=== PATIENT | male | born 1955 | race American Indian/Alaskan Native ===

== ENCOUNTER 2019-08-03 10:13 | Inpatient (IN) | payer OTHER ==
[2019-08-03] MEDS ORDERED: ASPIRIN 81 MG TAB CHEW PO ONE (10:29)
[2019-08-03] MEDS ORDERED: NITROGLYCERIN 2% OINT 1 GM TP ONE (10:29)
[2019-08-03] MEDS ORDERED: MORPHINE 4 MG/1 ML INJ IV ONE (10:30)
[2019-08-03] MEDS ORDERED: MORPHINE 4 MG/1 ML INJ ONE (10:35)
--- NOTE | 2019-08-03 10:38 | Emergency Department Report ---
ED Chest Pain HPI - General Chief Complaint: Chest Pain Stated Complaint: CHEST PAIN Time Seen by Provider: 08/03/19 10:26 Source: patient Mode of arrival: Wheelchair Limitations: No Limitations - History of Present Illness Initial Comments: 64-year-old Jayne female presents to the emergency department from home, through triage, with a complaint of some midsternal to right sided chest pain that woke him up from sleep this morning. It is associated with some mild shortness of breath but he denies any nausea, vomiting, fever or diaphoresis. He has not taken anything for her symptoms prior to arrival today. He is a tobacco smoker but denies any illicit drug use. He has a past mental history of hypertension. He has a primary care physician but does not have a contract law specialist. No recent travel or sick contacts at home. There are no known aggravating or alleviating factors. - Related Data Allergies Allergy/AdvReac Type Severity Reaction Status Date / Time No Known Allergies Allergy Unverified 08/03/19 10:17 Heart Score - HEART Score History: Highly suspicious EKG: Non-specific Age: 45-65 Risk factors: > 3 risk factors or hx of atherosclerotic disease Troponin: < normal limit HEART Score: 6 - Critical Actions Critical Actions: 4-6 pts:12-16.6% risk of adverse cardiac event. Should be admitted ED Review of Systems ROS: Stated complaint: CHEST PAIN Other details as noted in HPI Comment: All other systems reviewed and negative Constitutional: denies: chills, fever Eyes: denies: eye pain, vision change ENT: denies: ear pain, throat pain Respiratory: shortness of breath. denies: cough Cardiovascular: chest pain. denies: palpitations Gastrointestinal: denies: abdominal pain, vomiting Genitourinary: denies: dysuria, discharge Musculoskeletal: denies: back pain, arthralgia Skin: denies: rash, lesions Neurological: denies: headache, weakness ED Past Medical Hx - Past Medical History Previous Medical History?: Yes Hx Hypertension: Yes - Surgical History Past Surgical History?: No ED Physical Exam - General Limitations: No Limitations - Other Other exam information: GENERAL: The patient is well-developed well-nourished. HENT: Normocephalic. Atraumatic. Patient has moist mucous membranes. EYES: Extraocular motions are intact. NECK: Supple. Trachea is midline. CHEST/LUNGS: Clear to auscultation. There is no respiratory distress noted. Chest pain is not reproducible to palpation of the chest wall. HEART/CARDIOVASCULAR: Regular. There is no tachycardia. There is no murmur. ABDOMEN: Abdomen is soft, nontender. Patient has normal bowel sounds. There is no abdominal distention. SKIN: Skin is warm and dry. NEURO: The patient is awake, alert, and oriented. The patient is cooperative. The patient has no focal neurologic deficits. Normal speech. MUSCULOSKELETAL: There is no tenderness or deformity. There is no evidence of acute injury. ED Course Vital Signs 08/03/19 08/03/19 08/03/19 10:16 10:26 10:27 Temperature 97.9 F 97.9 F Pulse Rate 79 81 79 Respiratory 20 15 20 Rate Blood Pressure 180/106 Blood Pressure 176/108 [Right] O2 Sat by Pulse 99 99 Oximetry 08/03/19 08/03/19 08/03/19 10:30 10:45 11:00 Temperature Pulse Rate 80 82 81 Respiratory 21 12 11 L Rate Blood Pressure 174/107 171/102 Blood Pressure [Right] O2 Sat by Pulse 100 100 100 Oximetry 08/03/19 08/03/19 08/03/19 11:15 11:30 11:45 Temperature Pulse Rate 79 74 70 Respiratory 9 L 15 16 Rate Blood Pressure 156/102 153/96 153/96 Blood Pressure [Right] O2 Sat by Pulse 100 99 99 Oximetry 08/03/19 08/03/19 12:00 12:05 Temperature Pulse Rate 61 74 Respiratory 14 Rate Blood Pressure 160/97 153/96 Blood Pressure [Right] O2 Sat by Pulse 98 Oximetry - Consultations Consultation #1: A code STEMI was called secondary to the triage EKG. The EKG was shown to the barrel lathe operator outside, Dr. Beckham, who did not feel that the EKG mor phology was consistent with a STEMI but recommends the patient be treated medically, stabilized, and admitted for ACS. Code STEMI cancelled. The patient will be given 1 inch nitroglycerin paste. 08/03/19 10:36 08/03/19 11:15 A repeat EKG was sent to the barrel lathe operator outside and he was given a up date on the patient's ED course, vital signs and lab results thus far. The patient will be taken to the Garbage Collector Driver for ACS. BLAYNE score - Blayne Score Age > 65: (0) No Aspirin use within the Past 7 Days: (0) No 3 or more CAD Risk Factors: (1) Yes 2 or more Angina events in past 24 hrs: (1) Yes Known CAD with more than 50% Stenosis: (1) Yes Elevated Cardiac Markers: (0) No ST Deviation Greater than 0.5mm: (1) Yes BLAYNE Score: 4 ED Medical Decision Making - Lab Data Result diagrams: 08/03/19 10:34 08/03/19 10:34 - EKG Data -: EKG Interpreted by Me EKG shows normal: sinus rhythm, axis, intervals, QRS complexes, ST-T waves (ST elevation to the inferior leads without any significant reciprocal depression) Rate: normal - EKG Data When compared to previous EKG there are: previous EKG unavailable Interpretation: other (there is ST elevation to the inferior leads without reciprocal ST depression. Signs of ischemia or heart strain without ST elevation VA) - Radiology Data Radiology results: image reviewed interpreted by me: Chest x-ray does not show any acute process. There are no pleural effusions, obvious pneumonia and there is no pneumothorax. - Medical Decision Making This patient woke up this morning with some midsternal to right sided chest pain. EKG showed some concerns for ischemia but did not appear to meet ST elevation VA criteria after consultation with the contract law specialist. He was given aspirin, Nitropaste, morphine, a beta debbie with some improvement but not resolution of his chest pain. All this appeared consistent with acute coronary syndrome. The patient was placed on heparin and was taken to the Garbage Collector Driver where he was found to have an obstructive lesion of the second PDA that was given balloon angioplasty and the patient was then sent to the ICU. Patient accepted for admission by the hospitalist, Dr. White. - Differential Diagnosis VA, unstable angina, PE, pneumonia Critical Care Time: Yes Critical care time in (mins) excluding proc time.: 35 Critical care attestation.: If time is entered above; I have spent that time in minutes in the direct care of this critically ill patient, excluding procedure time. Critical care time was spent on this patient and doing his initial evaluation, multiple re-evaluations, ordering and interpretation of labs and imaging, m nora discussions with the barrel lathe operator outside and the patient himself. Critical Care Time: 35 minutes ED Disposition Clinical Impression: Acute chest pain, Acute coronary syndrome Disposition: DC-09 OP ADMIT IP TO THIS HOSP Is pt being admited?: Yes Condition: Serious Time of Disposition: 11:42
[2019-08-03 10:45] LABS: Basophils # (Auto) 0.1 K/mm3 (0.0-0.1); Eosinophils # (Auto) 0.3 K/mm3 (0.0-0.4); Eosinophils % (Auto) 2.6 % (0.0-4.3); Hemoglobin 15.8 gm/dl (11.8-15.2); Lymphocytes # (Auto) 4.2 K/mm3 (1.2-5.4); Lymphocytes % (Auto) 41.8 % (13.4-35.0); Mean Corpuscular HGB Conc 34 % (32-34); Mean Corpuscular Volume 101 fl (84-94); Monocytes # (Auto) 0.7 K/mm3 (0.0-0.8); Monocytes % (Auto) 7.2 % (0.0-7.3); Platelet Count 200 K/mm3 (140-440); Red Blood Count 4.57 M/mm3 (3.65-5.03); Red Cell Distribution Width 13.4 % (13.2-15.2)
[2019-08-03 10:56] LABS: INR 1.08 (0.87-1.13)
[2019-08-03 10:57] LABS: Partial Thromboplastin Time 26.5 Sec. (24.2-36.6)
[2019-08-03 10:59] LABS: Creatine Kinase MB 1.7 ng/mL (0.0-4.0)
--- NOTE | 2019-08-03 10:59 | XRay Report ---
CHEST 1 VIEW 08/03/2019 10:38 AM INDICATION / CLINICAL INFORMATION: Chest pain. COMPARISON: None available. FINDINGS: SUPPORT DEVICES: None. HEART / MEDIASTINUM: No significant abnormality. LUNGS / PLEURA: No significant pulmonary or pleural abnormality. No pneumothorax. ADDITIONAL FINDINGS: No significant additional findings. IMPRESSION: 1. No acute findings. Signer Name: Kishore Aquino MD Signed: 08/03/2019 10:55 AM Workstation Name: [id number]
[2019-08-03 11:00] LABS: BUN/Creatinine Ratio 16; Blood Urea Nitrogen 14 mg/dL (9-20); Calcium 9.4 mg/dL (8.4-10.2); Hemolysis Index 3
[2019-08-03] MEDS ORDERED: HEPARIN 10,000 UNITS/10 ML VIAL IV ONE (11:01)
[2019-08-03] MEDS ORDERED: METOPROLOL TARTRATE 5 MG/5 ML INJ IV ONE (11:01)
[2019-08-03] MEDS ORDERED: HEPARIN/NS 5000 UNIT/500ML 1,000 ML IR ONE (11:51)
[2019-08-03] MEDS ORDERED: fentaNYL 100 MCG/2 ML INJ ONE (11:52)
[2019-08-03] MEDS ORDERED: VERAPAMIL 5 MG/2 ML INJ ONE ×2 (11:52→11:55)
[2019-08-03] MEDS ORDERED: MIDAZOLAM 2 MG/2 ML INJ ONE (11:52)
[2019-08-03] MEDS ORDERED: NITROGLYCERIN SYRINGE 3 ML ONE ×2 (11:53→12:52)
[2019-08-03] MEDS ORDERED: LIDOCAINE (2%) 20 MG/1 ML VIAL 20 ML MDV INFILTRATI ONE (11:53)
[2019-08-03] MEDS ORDERED: HEPARIN/ 0.45% NACL DRIP 25,000 UNIT/500 ML BAG IV SCH (12:00)
[2019-08-03] MEDS ORDERED: SODIUM CHLORIDE 0.9% 500 ML 500 ML ONE (12:11)
[2019-08-03] MEDS: HEPARIN 10,000 UNITS/10 ML VIAL ONE ×2 (12:30→12:36)
--- NOTE | 2019-08-03 12:43 | History and Physical Report ---
History of Present Illness Date of admission: 08/03/19 11:42 Chief complaint: My chest hurts History of present illness: 64 YO Male with HTN, HLD, Nicotine Dependence presents to ED for evaluation. Pt states that he experienced a sudden onset of pain in his chest. Pt states that the pain awoke him from sleep this morning. Pt reports that pain is 6-8/10, midsternal, associated with shortness of breath, constant, not worsened with exertion, not relieved with rest. Pt transported to [facility] via private vehicle. Pt seen and evaluated in ED and found to have evidence of STEMI. Cardiology team c onsulted. Pt taken urgently to cardiac ammunition assembly ii laborer for intervention. Pt admitted to ICU. Pt denies fever, chills, NVD, Trauma, BRBPR, Productive cough, skin rash, recent ill contacts. No prior admission for review. No medication listed for reconciliation at time of admission. Past History Past Medical History: hypertension Past Surgical History: No surgical history, Other (reviewed) Social history: single. denies: smoking, alcohol abuse, prescription drug abuse Family history: no significant family history, other (reviewed) Medications and Allergies Allergies Allergy/AdvReac Type Severity Reaction Status Date / Time No Known Allergies Allergy Unverified 08/03/19 10:17 Active Meds: Active Medications Heparin Sodium/Sodium Chloride (Heparin/ 0.45% Nacl-25,000 Unit/500 Ml) 25,000 unit in 500 mls @ 20 mls/hr IV TITRATE MIKE; Protocol Review of Systems Constitutional: no weight loss, no weight gain, no fever, no chills, no sweats, no night sweats Ears, nose, mouth and throat: no ear pain, no ear discharge, no tinnitis, no decreased hearing, no nose pain, no nasal congestion Cardiovascular: chest pain, shortness of breath, no orthopnea, no palpitations, no lightheadedness, no paroxysmal nocturnal dyspnea, no claudication, no phlebitis Respiratory: no cough, no cough with sputum, no excessive sputum, no hemoptysis Gastrointestinal: no abdominal pain, no nausea, no vomiting, no diarrhea, no constipation, no change in bowel habits Genitourinary Male: no hematuria, no flank pain, no discharge, no urinary frequency, no urinary hesitancy Rectal: no pain, no incontinence, no bleeding Musculoskeletal: no neck stiffness, no neck pain, no shooting arm pain, no arm numbness/tingling, no low back pain Integumentary: no rash, no pruritis, no redness, no sores, no wounds Neurological: no transient paralysis, no paralysis, no weakness, no parathesias, no numbness, no tingling Psychiatric: no anxiety, no memory loss, no change in sleep habits, no insomnia, no hypersomnia Endocrine: no cold intolerance, no heat intolerance, no polyuria, no excessive sweating Hematologic/Lymphatic: no easy bruising, no easy bleeding, no lymphadenopathy, no lymphedema Allergic/Immunologic: no urticaria, no persistent infections, no anaphylaxis, no angioedema Exam - Constitutional Vitals: Temp Pulse Resp BP Pulse Ox 97.9 F 74 15 153/96 99 08/03/19 10:27 08/03/19 11:30 08/03/19 11:30 08/03/19 11:30 08/03/19 11:30 General appearance: Present: mild distress - EENT Eyes: Present: PERRL ENT: hearing intact, clear oral mucosa - Neck Neck: Present: supple, normal ROM - Respiratory Respiratory effort: normal Respiratory: bilateral: CTA - Cardiovascular Heart Sounds: Present: S1 & S2. Absent: rub, click - Extremities Extremities: pulses symmetrical, No edema Peripheral Pulses: within normal limits - Abdominal General gastrointestinal: Present: soft, non-tender, non-distended, normal bowel sounds Male genitourinary: Present: normal - Integumentary Integumentary: Present: clear, warm, dry - Musculoskeletal Musculoskeletal: gait normal, strength equal bilaterally - Psychiatric Psychiatric: appropriate mood/affect, intact judgment & insight - Neurologic Neurologic: CNII-XII intact, moves all extremities Results - Labs CBC & Chem 7: 08/03/19 10:34 08/03/19 10:34 Labs: Abnormal lab results 08/03/19 08/03/19 Range/Units 10:34 10:34 Hgb 15.8 H (11.8-15.2) gm/dl Hct 46.0 H (35.5-45.6) % MCV 101 H (84-94) fl MCH 35 H (28-32) pg Lymph % (Auto) 41.8 H (13.4-35.0) % Potassium 3.5 L (3.6-5.0) mmol/L Chloride 107.6 H (98-107) mmol/L Glucose 158 H (75-100) mg/dL Assessment and Plan - Patient Problems (1) STEMI (ST elevation myocardial infarction) Current Visit: Yes Status: Acute Qualifiers: Involved coronary artery: unspecified coronary artery Qualified Code(s): I21.3 - ST elevation (STEMI) myocardial infarction of unspecified site Plan to address problem: Pt admitted to ICU,cardiology team consulted, pulmonary team consulted, supportive care, lipid panel, antiplatelet therapy The high probability of a clinically significant, sudden or life threatening deterioration of the [cardiac,renal,pulmonary] system(s) required my full and direct attention, intervention and personal management. The aggregate critical care time was [65] minutes. This time is in addition to time spent performing reported procedures but includes the following: [x] Data Review and interpretation [x] Patient assessment and monitoring of vital signs [x] Documentation [x] Medication orders and managementCardiology consulted in ED, Pt to laboratory coordinator for cardiac intervention, Serial ekg, telemetry, (2) Nicotine dependence Current Visit: Yes Status: Acute Qualifiers: Substance use status: in withdrawal Plan to address problem: smoking cessation counseling, +15ming, supportive care. (3) Acute diastolic CHF (congestive heart failure) Current Visit: Yes Status: Acute Plan to address problem: Strict I/O, daily weight, blood pressure control, Echo, cardiology consulted, monitor uop q shift, afterload reduction, supplemental oxygen, pulse oximetry, bmp. (4) Hyperlipemia, mixed Current Visit: Yes Status: Chronic Plan to address problem: lipid panel, statin therapy, balanced diet, increased physical activity at discharge (5) Hypertension Current Visit: Yes Status: Chronic Qualifiers: Hypertension type: essential hypertension Qualified Code(s): I10 - Essential (primary) hypertension Plan to address problem: Monitor bp q shift, continue medical management (6) DVT prophylaxis Current Visit: Yes Status: Acute Plan to address problem: SCD to BLE while in bed,
[2019-08-03] MEDS ORDERED: TIROFIBAN/NS 12,500 MCG/250 ML BAG IV ONE (12:46)
[2019-08-03] MEDS ORDERED: CLOPIDOGREL 300 MG TAB ONE (12:53)
[2019-08-03] MEDS ORDERED: NITROGLYCERIN DRIP 50 MG/250 ML BOTTLE ONE (12:53)
[2019-08-03] MEDS ORDERED: NITROGLYCERIN DRIP 50 MG/250 ML BOTTLE IV ONE (13:12)
[2019-08-03] MEDS ORDERED: ONDANSETRON 4 MG/2 ML INJ IV PRN (13:12)
[2019-08-03] MEDS ORDERED: ALUM-MAG HYDROXIDE-SIMETHICONE 200-200-20MG/5ML ORAL LIQD 30 ML ONE (13:18)
--- NOTE | 2019-08-03 13:23 | Consultation ---
History of Present Illness Consult date: 08/03/19 Requesting physician: SHARA FONTAINE Consult reason: chest pain History of present illness: 63-year-old male with hypertension hyperlipidemia and smoker was seen by my partner Dr. Mitchell in the office. Had a incomplete stress test. Patient states there is an episode of midsternal chest burning. It resolved. 9:00 t kevan had again midsternal chest burning no nausea no vomiting and some mild shortness of breath. Patient came to emergency room shows some mild elevation inferiorly but did not meet criteria for acute PA. Was treated medically for chest pain for suspected acute coronary syndrome. In view of persistent chest pain patient was brought emergently to the cardiac slabbing machine operator which revealed left main long patent LAD patent ramus patent obtuse marginal 1 patent circumflex patent OM patent RCA patent PLV patent but PDA second branch midportion was 100% with borderline normal LV function. Patient had balloon angioplasty of the PDA restoring WARREN-3 flow residual 20% lesion to small for stenting. It was chest pain-free at the end of the case. Patient denies any fever or chills melena seizure type activity or fatigue Past History Past Medical History: hypertension, hyperlipidemia Past Surgical History: denies: No surgical history Social history: smoking. denies: alcohol abuse, prescription drug abuse Family history: denies: no significant family history Medications and Allergies Allergies Allergy/AdvReac Type Severity Reaction Status Date / Time No Known Allergies Allergy Unverified 08/03/19 10:17 Active Meds: Active Medications Aspirin (Baby Aspirin) 81 mg PO QDAY MIKE Atorvastatin Calcium (Lipitor) 80 mg PO QHS MIKE Clopidogrel Bisulfate (Plavix) 75 mg PO QDAY MIKE Heparin Sodium/Sodium Chloride (Heparin/ 0.45% Nacl-25,000 Unit/500 Ml) 25,000 unit in 500 mls @ 20 mls/hr IV TITRATE MIKE; Protocol Sodium Chloride (Nacl 0.9% 1000 Ml) 1,000 mls @ 75 mls/hr IV DIRECT MIKE Stop: 08/03/19 21:59 Nitroglycerin/Dextrose (Tridil Drip 50mg/250ml) 50 mg in 250 mls @ 6 mls/hr IV TITR ONE; Protocol Stop: 08/05/19 06:51 Tirofiban/Sodium Chloride (Aggrastat Drip (12.5 Mg/250 Ml)) 12,500 mcg in 250 mls @ 0 mls/hr IV DIRECT MIKE; Protocol Stop: 08/04/19 07:59 Losartan Potassium (Cozaar) 25 mg PO QDAY MIKE Metoprolol Tartrate (Metoprolol) 50 mg PO BID MIKE Ondansetron HCl (Zofran) 4 mg IV Q8H PRN PRN Reason: N/V unrelieved by Reglan Sodium Chloride (Sodium Chloride Flush Syringe 10 Ml) 10 ml IV BID MIKE Sodium Chloride (Sodium Chloride Flush Syringe 10 Ml) 10 ml IV PRN PRN PRN Reason: LINE FLUSH Review of Systems All systems: negative (as per HPI) Physical Examination Vital Signs Temp Pulse Resp BP Pulse Ox 97.9 F 79 20 176/108 99 08/03/19 10:16 08/03/19 10:16 08/03/19 10:16 08/03/19 10:16 08/03/19 10:16 General appearance: no acute distress, well-nourished HEENT: Positive: PERRL, Mucus Membranes Moist Neck: Positive: neck supple, trachea midline Cardiac: Positive: Reg Rate and Rhythm, S1/S2, S3 Lungs: Positive: clear to auscultation, Normal Breath Sounds Neuro: Positive: Grossly Intact Abdomen: Positive: Soft, Active Bowel Sounds. Negative: Tender, Distended Male genitourinary: Positive: normal Skin: Positive: Clear Incision: Cardiac Cath Site Musculoskeletal: No Pain, Normal Range of Motion Extremities: Present: normal. Absent: edema Results 08/03/19 10:34 08/03/19 10:34 Cardiac Enzymes 08/03/19 Range/Units 10:34 CK-MB (CK-2) 1.7 (0.0-4.0) ng/mL Coagulation 08/03/19 Range/Units 10:34 PT 13.9 (12.2-14.9) Sec. INR 1.08 (0.87-1.13) APTT 26.5 (24.2-36.6) Sec. CBC 08/03/19 Range/Units 10:34 WBC 10.1 (4.5-11.0) K/mm3 RBC 4.57 (3.65-5.03) M/mm3 Hgb 15.8 H (11.8-15.2) gm/dl Hct 46.0 H (35.5-45.6) % Plt Count 200 (140-440) K/mm3 Lymph # 4.2 (1.2-5.4) K/mm3 [place] # 0.7 (0.0-0.8) K/mm3 Eos # 0.3 (0.0-0.4) K/mm3 Baso # 0.1 (0.0-0.1) K/mm3 Comprehensive Metabolic Panel 08/03/19 Range/Units 10:34 Sodium 142 (137-145) mmol/L Potassium 3.5 L (3.6-5.0) mmol/L Chloride 107.6 H (98-107) mmol/L Carbon Dioxide 22 (22-30) mmol/L BUN 14 (9-20) mg/dL Creatinine 0.9 (0.8-1.5) mg/dL Glucose 158 H (75-100) mg/dL Calcium 9.4 (8.4-10.2) mg/dL - Imaging and Cardiology Cardiac cath: report reviewed (left main long patent LAD patent ramus patent obtuse marginal 1 patent circumflex patent OM patent RCA patent PLV patent but PDA second branch midportion was 100% with borderline normal LV function.) EKG interpretations - Telemetry EKG Rhythm: Sinus Rhythm (sinus rhythm mild inferior wall elevation without reciprocal changes) Assessment and Plan 64-year-old male presented with acute coronary syndrome had balloon angioplasty of second PDA small vessel disease restored WARREN-3 flow. Has left main patent LAD patent circumflex patent ramus patent obtuse margin 1 patent obtuse marginal 2. RCA large patent PLV patent PDA has WARREN-3 flow and reducing stenosis to less than 20% in midportion of the vessel to small for stenting. remain in CCU on IV nitroglycerin and IV Aggrastat. Aspirin Plavix beta debbie therapy and high-dose statin. Waiting for echocardiogram. - Patient Problems (1) CAD (coronary artery disease) Current Visit: Yes Status: Acute Qualifiers: Coronary Disease-Associated Artery/Lesion type: [place] artery [place] vs. transplanted heart: [place] heart Associated angina: with unstable angina Qualified Code(s): I25.110 - Atherosclerotic heart disease of [place] coronary artery with unstable angina pectoris (2) Acute diastolic CHF (congestive heart failure) Current Visit: Yes Status: Acute (3) Smoker Current Visit: Yes Status: Chronic (4) Hyperlipemia, mixed Current Visit: Yes Status: Chronic (5) Hypertension Current Visit: Yes Status: Chronic Qualifiers: Hypertension type: essential hypertension Qualified Code(s): I10 - Essential (primary) hypertension (6) Acute coronary syndrome Current Visit: Yes Status: Acute
--- NOTE | 2019-08-03 13:23 | Cardiac Catherization Report ---
PROCEDURE: Left heart catheterization/percutaneous coronary intervention report. CLINICAL INFORMATION: This is a 64-year-old -[place] gentleman who has hypertension, hyperlipidemia, smoker, falls, was last seen by my partner Dr. Karen Mitchell, presents to the ED with chest pain this morning. EKG shows borderline elevations inferiorly, but no reciprocal changes, was being treated medically, failed and brought here to the cardiac label machine operator. The patient was done moderate sedation, start time 12:27, finished at 12:52 which is 25 minutes of supervised sedation. DESCRIPTION OF PROCEDURE: Left heart catheterization performed via the right radial artery, sterile technique, local anesthesia, 6-Barbadian radial sheath inserted. PROCEDURE FINDINGS: Left system engaged with JL3.5 catheter, left main is large, long and patent, bifurcates into a large LAD that is patent, small diagonal 1 and 2 patent. Ramus is a large caliber vessel, patent. Obtuse marginal 1 and high obtuse marginal 1 is a large caliber vessel, patent. Circumflex is a medium caliber vessel that is patent, medium caliber OM2 patent. LV gram done in MAURITANIAN and PACHECO view shows normal LV function, EF 50-55% with some distal inferior wall mild hypokinesis. LVEDP at 34 mmHg, LV is 154 mmHg. Aortic is 153/94 mmHg. No gradient across the valve on pullback. RCA engaged with a 6-Barbadian JR4 guiding catheter, is a large caliber vessel moderate tortuosity, patent from proximally and distally, then bifurcates into medium to large caliber PLV that is patent. PDA has multiple branches. In the second branch, the mid portion is 100% of a small caliber vessel. 1. So percutaneous coronary intervention of the PDA engaged the RCA with JR4 guiding catheter. 2. Crossed into the PDA with short [place] wire. 3. Ballooned mid section of the second PDA with a 2.0 x 12 balloon at 8-10 atmospheres x 3 inflations. 4. Intracoronary nitroglycerin was also given. 5. Repeat angiogram shows WARREN 3 flow and longer branch of that second PDA. They are patent and residual stenosis of less than 20% of a less than 2 mm vessel. 6. Removed coronary wire, multiple angiograms WARREN 3 flow now into the second branch, PDA, reduced stenosis less than 20%, no dissection or perforation noted. PDA 1 is patent. PLV is a medium to large caliber, was patent. RCA is patent. 7. A 6-Barbadian guiding catheter taken over guidewire, 6-Barbadian radial sheath was discontinued. Radial band applied. No hematoma, no bleeding. SUMMARY: 1. Successful percutaneous balloon angioplasty of the second PDA with a 2.0 x 12 restoring WARREN 3 flow, reduced stenosis less than 20% from 100% with 2.0 mm vessel. 2. RCA is large moderate tortuosity vessel that is patent. PDA 1 is small caliber and is patent. PLV is medium caliber vessel that is patent with multiple branches. 3. Left main is large, long and patent. LAD is patent. Ramus large patent. OM1 large patent, circumflex medium caliber and patent. OM2 medium caliber, patent with normal LV function, Distal inferior wall has mild hypokinesis, EF 50% with elevated left end-diastolic pressure. 4. The patient is chest pain free. EKG shows normal elevations. Patient will be treated with aspirin, loaded with 600 mg of Plavix. IV Aggrastat, IV nitro for small vessel disease. IV hydration. Discussed this with the patient and the patient's family in detail and smoking cessation urged. JOB# [id number] ROBIN/THOMAS
--- NOTE | 2019-08-03 13:43 | Consultation ---
History of Present Illness Consult date: 08/03/19 Requesting physician: ANDIE HUGHES Reason for consult: other (STEMI s/p balloon angioplasty) History of present illness: 63-year-old male with hypertension hyperlipidemia and smoker was seen by my partner Dr. Mitchell in the office. Had a incomplete stress test. Patient states there is an episode of midsternal chest burning. It resolved. 9:00 today had again midsternal chest burning no nausea no vomiting and some mild shortness of breath. Patient came to emergency room shows some mild elevation inferiorly but did not meet criteria for acute NH. Was treated medically for chest pain for suspected acute coronary syndrome. In view of persistent chest pain patient was brought emergently to the cardiac laboratory manager which revealed left main long patent LAD patent ramus patent obtuse marginal 1 patent circumflex patent OM patent RCA patent PLV patent but PDA second branch midportion was 100% with borderline normal LV function. Patient had balloon angioplasty of the PDA restoring [place]-3 flow residual 20% lesion to small for stenting. He was chest pain-free at the end of the case. He has been admitted to the ICU for monitoring and I have been consulted for critical care management. Patient was seen and examined. Vitals, labs,medications, chart and imaging were revewied. He denies any chest pain at this time, no shortness of breath. "I feel good". He is on a nitroglycerin infusion Comment: All other systems reviewed and negative Constitutional: denies: chills, fever Eyes: denies: eye pain, vision change ENT: denies: ear pain, throat pain Respiratory: shortness of breath. denies: cough Cardiovascular: chest pain. denies: palpitations Gastrointestinal: denies: abdominal pain, vomiting Genitourinary: denies: dysuria, discharge Musculoskeletal: denies: back pain, arthralgia Skin: denies: rash, lesions Neurological: denies: headache, weakness Past History Past Medical History: hypertension, hyperlipidemia Past Surgical History: denies: No surgical history Social history: smoking. denies: alcohol abuse, prescription drug abuse Family history: denies: no significant family history Medications and Allergies Allergies Allergy/AdvReac Type Severity Reaction Status Date / Time No Known Allergies Allergy Unverified 08/03/19 10:17 Active Meds: Active Medications Aspirin (Baby Aspirin) 81 mg PO QDAY MIKE Atorvastatin Calcium (Lipitor) 80 mg PO QHS MIKE Clopidogrel Bisulfate (Plavix) 75 mg PO QDAY MIKE Heparin Sodium/Sodium Chloride (Heparin/ 0.45% Nacl-25,000 Unit/500 Ml) 25,000 unit in 500 mls @ 20 mls/hr IV TITRATE MIKE; Protocol Sodium Chloride (Nacl 0.9% 1000 Ml) 1,000 mls @ 75 mls/hr IV DIRECT MIKE Stop: 08/03/19 21:59 Nitroglycerin/Dextrose (Tridil Drip 50mg/250ml) 50 mg in 250 mls @ 6 mls/hr IV TITR ONE; Protocol Stop: 08/05/19 06:51 Tirofiban/Sodium Chloride (Aggrastat Drip (12.5 Mg/250 Ml)) 12,500 mcg in 250 mls @ 15 mls/hr IV DIRECT MIKE; Protocol Stop: 08/04/19 07:59 Losartan Potassium (Cozaar) 25 mg PO QDAY [facility] Metoprolol Tartrate (Metoprolol) 50 mg PO BID [facility] Ondansetron HCl (Zofran) 4 mg IV Q8H PRN PRN Reason: Nausea And Vomiting Sodium Chloride (Sodium Chloride Flush Syringe 10 Ml) 10 ml IV BID [facility] Sodium Chloride (Sodium Chloride Flush Syringe 10 Ml) 10 ml IV PRN PRN PRN Reason: LINE FLUSH Review of Systems All systems: negative (as in HPI) Physical Examination Vital signs: Vital Signs Temp Pulse Resp BP Pulse Ox 97.9 F 79 20 176/108 99 08/03/19 10:16 08/03/19 10:16 08/03/19 10:16 08/03/19 10:16 08/03/19 10:16 Reviewed General appearance: no acute distress, well-nourished HEENT: Positive: PERRL, Mucus Membranes Moist Neck: Positive: neck supple, trachea midline Cardiac: Positive: Reg Rate and Rhythm, S1/S2, S3 Lungs: Positive: clear to auscultation, Normal Breath Sounds Neuro: Positive: Grossly Intact Abdomen: Positive: Soft, Active Bowel Sounds. Negative: Tender, Distended Male genitourinary: Positive: normal Skin: Positive: Clear Incision: Cardiac Cath Site Musculoskeletal: No Pain, Normal Range of Motion right radial dressing, no edema; no bleeding Extremities: Present: normal. Absent: edema Results - Laboratory Findings CBC and BMP: 08/03/19 10:34 08/03/19 10:34 PT/INR, D-dimer PT 13.9 Sec. (12.2-14.9) 08/03/19 10:34 INR 1.08 (0.87-1.13) 08/03/19 10:34 D-Dimer 136.51 ng/mlDDU (0-234) 08/03/19 10:34 Abnormal lab findings: Abnormal Labs 08/03/19 08/03/19 10:34 10:34 Hgb 15.8 H Hct 46.0 H MCV 101 H MCH 35 H Lymph % (Auto) 41.8 H Potassium 3.5 L Chloride 107.6 H Glucose 158 H Assessment and Plan CAD, ACS,s/p PCI and baloon angioplast Tobacco use disorder HTN -Admit ICU for close monitoring overnight -Continue with post cardiac cath care per cardiology -Transthoracic echocardiogram to evaluate LVEF and for pulmonary HTN -Smoking cessation counselling done for >7 minutes at the bedside -Nicotine withdrawal precautions -Supplemental oxygen to keep O2 sats>90% -Cardio-protective measures -Life style modifications -Wean off nitroglycerin infusion -Blood pressure control Discussed with patient and answered all his questions at the bedside Discussed with triage register nurse Discussed with RN CONDITION: GUARDED CODE STATUS: FULL CODE
[2019-08-03] MEDS ORDERED: TIROFIBAN/NS 12,500 MCG/250 ML BAG IV SCH (14:00)
[2019-08-03] MEDS ORDERED: SODIUM CHLORIDE 0.9% 1000 ML 1,000 ML IV SCH (14:00)
[2019-08-03 19:07] LABS: Creatine Kinase MB 53.7 ng/mL (0.0-4.0)
[2019-08-03 19:27] LABS: Chol/HDL Ratio 2.89 %
[2019-08-03 21:12] LABS: Creatine Kinase MB 55.6 ng/mL (0.0-4.0)
[2019-08-03] MEDS ORDERED: METOPROLOL TARTRATE 50 MG TAB PO SCH (22:00)
[2019-08-04 06:12] LABS: Basophils # (Auto) 0.1 K/mm3 (0.0-0.1); Basophils % (Auto) 0.8 % (0.0-1.8); Eosinophils # (Auto) 0.2 K/mm3 (0.0-0.4); Hematocrit 40.6 % (35.5-45.6); Hemoglobin 13.9 gm/dl (11.8-15.2); Lymphocytes # (Auto) 3.8 K/mm3 (1.2-5.4); Lymphocytes % (Auto) 36.5 % (13.4-35.0); Mean Corpuscular HGB Conc 34 % (32-34); Mean Corpuscular Volume 101 fl (84-94); Monocytes # (Auto) 0.9 K/mm3 (0.0-0.8); Platelet Count 178 K/mm3 (140-440); Red Cell Distribution Width 13.3 % (13.2-15.2)
[2019-08-04 06:39] LABS: Creatine Kinase MB 29.5 ng/mL (0.0-4.0)
[2019-08-04 06:41] LABS: Alanine Aminotransferase 18 units/L (7-56); Albumin 3.6 g/dL (3.9-5); BUN/Creatinine Ratio 14; Blood Urea Nitrogen 11 mg/dL (9-20); Calcium 8.7 mg/dL (8.4-10.2); Hemolysis Index 15
--- NOTE | 2019-08-04 09:05 | Progress Note ---
Assessment and Plan pt is off iv nitro and aggrastat, cont asa 81mg and plavix 75mg and lipitor 40mg, pt was on home bp med norvasc will d/c, cont lopressor 25mg bid, losartan 50mg and add imdur 30mg for spasm. and may be transferred to tele to ambulate and possible d/c in am and discuss with pt and girlfriend about again smoking cessation and cont current hosptial meds and followup with primary can inspector dr mcrae. - Patient Problems (1) CAD (coronary artery disease) Current Visit: Yes Status: Acute Qualifiers: Coronary Disease-Associated Artery/Lesion type: [place] artery [place] vs. transplanted heart: [place] heart Associated angina: with unstable angina Qualified Code(s): I25.110 - Atherosclerotic heart disease of [place] coronary artery with unstable angina pectoris (2) Acute diastolic CHF (congestive heart failure) Current Visit: Yes Status: Acute (3) Smoker Current Visit: Yes Status: Chronic (4) Hyperlipemia, mixed Current Visit: Yes Status: Chronic (5) Hypertension Current Visit: Yes Status: Chronic Qualifiers: Hypertension type: essential hypertension Qualified Code(s): I10 - Essential (primary) hypertension (6) Acute coronary syndrome Current Visit: Yes Status: Acute Subjective Date of service: 08/04/19 Principal diagnosis: cp and nstemi Interval history: pt has no chest pain Objective Vital Signs Temp Pulse Resp BP BP Pulse Ox 08/04/19 06:30 54 L 18 136/89 96 08/04/19 06:15 59 L 12 144/90 97 08/04/19 06:00 60 17 126/70 96 08/04/19 05:46 65 19 126/70 92 08/04/19 05:30 61 16 133/78 97 08/04/19 05:16 57 L 19 133/78 97 08/04/19 05:00 59 L 11 L 110/65 95 08/04/19 04:46 64 14 110/65 96 08/04/19 04:30 65 12 110/65 97 08/04/19 04:16 67 21 110/65 98 08/04/19 04:00 98.8 F 65 17 110/65 91 08/04/19 03:46 66 9 L 126/80 95 08/04/19 03:30 67 16 126/80 96 08/04/19 03:00 60 20 126/80 99 08/04/19 02:30 65 11 L 126/78 96 08/04/19 02:00 62 15 134/83 97 08/04/19 01:30 56 L 13 134/83 99 08/04/19 01:00 62 21 127/79 98 08/04/19 00:30 66 17 127/79 97 08/04/19 00:00 98.8 F 72 17 96 08/03/19 23:31 84 18 130/88 97 08/03/19 23:01 74 20 130/88 96 08/03/19 22:31 83 19 130/88 95 08/03/19 22:11 72 130/88 08/03/19 22:03 78 20 130/88 96 08/03/19 22:01 72 20 130/88 96 08/03/19 22:00 68 08/03/19 21:31 82 19 148/93 95 08/03/19 21:00 73 20 148/93 98 08/03/19 20:31 74 12 132/83 89 08/03/19 20:01 85 24 132/83 94 08/03/19 20:00 98.9 F 97 08/03/19 19:31 70 21 132/83 96 08/03/19 19:01 17 132/83 96 08/03/19 18:31 57 L 21 128/80 97 08/03/19 18:00 56 L 30 H 128/80 97 08/03/19 17:31 64 17 145/92 95 08/03/19 17:01 96 08/03/19 16:31 58 L 97 08/03/19 16:15 70 14 116/54 99 08/03/19 16:04 69 14 99 08/03/19 16:00 97.8 F 08/03/19 15:45 72 12 107/50 96 08/03/19 15:30 74 13 100/59 100 08/03/19 15:15 72 15 160/97 100 08/03/19 15:11 160/97 99 08/03/19 14:47 160/97 100 08/03/19 12:05 74 153/96 08/03/19 12:00 61 14 160/97 98 08/03/19 11:45 70 16 153/96 99 08/03/19 11:30 74 15 153/96 99 08/03/19 11:15 79 9 L 156/102 100 08/03/19 11:00 81 11 L 171/102 100 08/03/19 10:45 82 12 100 08/03/19 10:30 80 21 174/107 100 08/03/19 10:27 97.9 F 79 20 180/106 99 08/03/19 10:26 81 15 08/03/19 10:16 97.9 F 79 20 176/108 99 - Physical Examination General: No Apparent Distress HEENT: Positive: PERRL, Mucus Membranes Moist Neck: Positive: neck supple, trachea midline Cardiac: Positive: Reg Rate and Rhythm Lungs: Positive: clear to auscultation Neuro: Positive: Grossly Intact Abdomen: Positive: Soft, Active Bowel Sounds. Negative: Tender, Distended Skin: Positive: Clear Incision: Cardiac Cath Site Musculoskeletal: No Pain, Normal Range of Motion Extremities: Present: normal. Absent: edema - Labs and Meds Cardiac Enzymes 08/03/19 08/03/19 08/03/19 Range/Units 10:34 17:30 19:52 AST (5-40) units/L CK-MB (CK-2) 1.7 53.7 H 55.6 H (0.0-4.0) ng/mL 08/04/19 Range/Units 05:43 AST 39 (5-40) units/L CK-MB (CK-2) 29.5 H (0.0-4.0) ng/mL Coagulation 08/03/19 Range/Units 10:34 PT 13.9 (12.2-14.9) Sec. INR 1.08 (0.87-1.13) APTT 26.5 (24.2-36.6) Sec. Lipids 08/03/19 Range/Units 17:30 Triglycerides 89 (2-149) mg/dL Cholesterol 136 (50-199) mg/dL HDL Cholesterol 47 (40-59) mg/dL Cholesterol/HDL Ratio 2.89 % CBC 08/03/19 08/04/19 Range/Units 10:34 05:43 WBC 10.1 10.4 (4.5-11.0) K/mm3 RBC 4.57 4.00 (3.65-5.03) M/mm3 Hgb 15.8 H 13.9 (11.8-15.2) gm/dl Hct 46.0 H 40.6 (35.5-45.6) % Plt Count 200 178 (140-440) K/mm3 Lymph # 4.2 3.8 (1.2-5.4) K/mm3 [place] # 0.7 0.9 H (0.0-0.8) K/mm3 Eos # 0.3 0.2 (0.0-0.4) K/mm3 Baso # 0.1 0.1 (0.0-0.1) K/mm3 Comprehensive Metabolic Panel 08/03/19 08/04/19 Range/Units 10:34 05:43 Sodium 142 141 (137-145) mmol/L Potassium 3.5 L 3.8 (3.6-5.0) mmol/L Chloride 107.6 H 110.8 H (98-107) mmol/L Carbon Dioxide 22 20 L (22-30) mmol/L BUN 14 11 (9-20) mg/dL Creatinine 0.9 0.8 (0.8-1.5) mg/dL Glucose 158 H 108 H (75-100) mg/dL Calcium 9.4 8.7 (8.4-10.2) mg/dL AST 39 (5-40) units/L ALT 18 (7-56) units/L Alkaline Phosphatase 117 (35-129) units/L Total Protein 6.0 L (6.3-8.2) g/dL Albumin 3.6 L (3.9-5) g/dL - Imaging and Cardiology Echo: report reviewed (normal lv function and no signficant regurtiations) Cardiac cath: report reviewed (left main long patent LAD patent ramus patent obtuse marginal 1 patent circumflex patent OM patent RCA patent PLV patent but PDA second branch midportion was 100% with borderline normal LV function.) - Telemetry EKG Rhythm: Sinus Rhythm
--- NOTE | 2019-08-04 09:12 | Progress Note ---
Assessment and Plan ACS now s/p PCI and balloon angioplasty CAD Tobacco use disorder HTN - Continue with post cardiac cath care per cardiology - follow Transthoracic echocardiogram to evaluate LVEF and for pulmonary HTN - Smoking cessation counselling done for >7 minutes at the bedside - Nicotine withdrawal precautions - continue supplemental oxygen to keep O2 sats>90% - Cardio-protective measures - Life style modifications - Wean off nitroglycerin infusion - Blood pressure control CONDITION: GUARDED CODE STATUS: FULL CODE Subjective Date of service: 08/04/19 Principal diagnosis: Acute Coronary Syndrome; NSTEMI; CAD; Tobacco use disorder; HTN Interval history: Patient is seen today for: ACS now s/p PCI and balloon angioplasty; CAD; Tobacco use disorder; HTN Seen and examined at bedside; 24hour events reviewed; nursing and respiratory care staff consulted; no adverse overnight events reported to me; Objective Vital Signs - 12hr 08/03/19 08/03/19 08/03/19 21:31 22:00 22:01 Temperature Pulse Rate 82 68 72 Respiratory 19 20 Rate Blood Pressure 148/93 130/88 O2 Sat by Pulse 95 96 Oximetry 08/03/19 08/03/19 08/03/19 22:03 22:11 22:31 Temperature Pulse Rate 78 72 83 Respiratory 20 19 Rate Blood Pressure 130/88 130/88 130/88 O2 Sat by Pulse 96 95 Oximetry 08/03/19 08/03/19 08/04/19 23:01 23:31 00:00 Temperature 98.8 F Pulse Rate 74 84 72 Respiratory 20 18 17 Rate Blood Pressure 130/88 130/88 O2 Sat by Pulse 96 97 96 Oximetry 08/04/19 08/04/19 08/04/19 00:30 01:00 01:30 Temperature Pulse Rate 66 62 56 L Respiratory 17 21 13 Rate Blood Pressure 127/79 127/79 134/83 O2 Sat by Pulse 97 98 99 Oximetry 08/04/19 08/04/19 08/04/19 02:00 02:30 03:00 Temperature Pulse Rate 62 65 60 Respiratory 15 11 L 20 Rate Blood Pressure 134/83 126/78 126/80 O2 Sat by Pulse 97 96 99 Oximetry 08/04/19 08/04/19 08/04/19 03:30 03:46 04:00 Temperature 98.8 F Pulse Rate 67 66 65 Respiratory 16 9 L 17 Rate Blood Pressure 126/80 126/80 110/65 O2 Sat by Pulse 96 95 91 Oximetry 08/04/19 08/04/19 08/04/19 04:16 04:30 04:46 Temperature Pulse Rate 67 65 64 Respiratory 21 12 14 Rate Blood Pressure 110/65 110/65 110/65 O2 Sat by Pulse 98 97 96 Oximetry 08/04/19 08/04/19 08/04/19 05:00 05:16 05:30 Temperature Pulse Rate 59 L 57 L 61 Respiratory 11 L 19 16 Rate Blood Pressure 110/65 133/78 133/78 O2 Sat by Pulse 95 97 97 Oximetry 08/04/19 08/04/19 08/04/19 05:46 06:00 06:15 Temperature Pulse Rate 65 60 59 L Respiratory 19 17 12 Rate Blood Pressure 126/70 126/70 144/90 O2 Sat by Pulse 92 96 97 Oximetry 08/04/19 08/04/19 08/04/19 06:30 06:45 07:00 Temperature Pulse Rate 54 L 65 55 L Respiratory 18 9 L 14 Rate Blood Pressure 136/89 138/91 138/91 O2 Sat by Pulse 96 97 95 Oximetry 08/04/19 08/04/19 08/04/19 07:16 07:30 07:45 Temperature Pulse Rate 54 L 56 L 56 L Respiratory 25 H 16 25 H Rate Blood Pressure 112/77 112/77 126/67 O2 Sat by Pulse 98 96 97 Oximetry 08/04/19 08/04/19 08/04/19 08:00 08:16 08:30 Temperature Pulse Rate 58 L 56 L Respiratory 22 17 15 Rate Blood Pressure 134/72 123/74 123/74 O2 Sat by Pulse 94 100 97 Oximetry 08/04/19 08/04/19 08:46 09:00 Temperature Pulse Rate 60 65 Respiratory 9 L 15 Rate Blood Pressure 125/79 125/79 O2 Sat by Pulse 99 97 Oximetry CBC and BMP: 08/04/19 05:43 08/04/19 05:43 ABG, PT/INR, D-dimer: PT/INR, D-dimer PT 13.9 Sec. (12.2-14.9) 08/03/19 10:34 INR 1.08 (0.87-1.13) 08/03/19 10:34 D-Dimer 136.51 ng/mlDDU (0-234) 08/03/19 10:34 Abnormal lab findings: Abnormal Labs 08/03/19 08/03/19 08/03/19 10:34 10:34 17:30 Hgb 15.8 H Hct 46.0 H MCV 101 H MCH 35 H Lymph % (Auto) 41.8 H [place] % (Auto) [place] # Potassium 3.5 L Chloride 107.6 H Carbon Dioxide Glucose 158 H Total Creatine Kinase 377 H CK-MB (CK-2) 53.7 H CK-MB (CK-2) Rel Index 14.2 H Troponin T 0.608 H* D Total Protein Albumin 08/03/19 08/04/19 08/04/19 19:52 05:43 05:43 Hgb Hct MCV 101 H MCH 35 H Lymph % (Auto) 36.5 H [place] % (Auto) 9.0 H [place] # 0.9 H Potassium Chloride 110.8 H Carbon Dioxide 20 L Glucose 108 H Total Creatine Kinase 398 H 286 H CK-MB (CK-2) 55.6 H 29.5 H CK-MB (CK-2) Rel Index 13.9 H 10.3 H Troponin T 0.751 H* D 0.478 H* D Total Protein 6.0 L Albumin 3.6 L
[2019-08-04] MEDS: METOPROLOL TARTRATE 50 MG TAB PO SCH ×2 (09:39→21:51)
[2019-08-04] MEDS: CLOPIDOGREL 75 MG TAB PO SCH (09:39)
[2019-08-04] MEDS: LOSARTAN 25 MG TAB PO SCH (09:40)
[2019-08-04] MEDS: ASPIRIN 81 MG TAB CHEW PO SCH (09:42)
--- NOTE | 2019-08-04 09:58 | Progress Note ---
Assessment and Plan Assessment and plan: 64-year-old man who presented to the hospital with chest pain. It was midsternal chest pain that woke him up from sleep. He suffered a non-STEMI. He failed medical treatments and therefore was taken to the [facility]. Where he received successful percutaneous balloon angioplasty. After which she is m edically managed. Patient improving, now chest pain-free. Will transfer to telemetry Tobacco abuse/dependence Smoking cessation counseling performed for 10 minutes, nicotine patches when necessary Optimize medications for chronic conditions Case discussed with merchant mill utility worker. DVT prophylaxis with Lovenox Diagnosis Unstable angina Non-STEMI Acute diastolic heart failure Tobacco abuse Hypertension Hyperlipidemia History Interval history: Review of systems Constitutional: No fevers, no malaise, no joint pains CVS: No chest pain, no orthopnea, no pedal edema GI: No abdominal pain, no diarrhea, no vomiting, no constipation Respiratory: , no wheezing, no coughing Hospitalist Physical - Physical exam Narrative exam: General.: Appears well, no distress, nontoxic HEENT: Moist mucous membranes, extraocular muscles intact, no lymphadenopathy Neck: supple Cardiac: S1-S2 heard Lungs: clear to auscultation bilaterally Abdomen: soft , nontender, nondistended, bowel sounds positive Extremities: no edema clubbing or cyanosis Skin: no rash or lesions Neurologic: no gross focal deficits Psych: calm, and cooperative - Constitutional Vitals: Temp Pulse Resp BP Pulse Ox 98.8 F 71 15 132/72 97 08/04/19 04:00 08/04/19 09:40 08/04/19 09:00 08/04/19 09:40 08/04/19 09:00 General appearance: Present: mild distress Results - Labs CBC & Chem 7: 08/04/19 05:43 08/04/19 05:43 Labs: Laboratory Last Values WBC 10.4 K/mm3 (4.5-11.0) 08/04/19 05:43 RBC 4.00 M/mm3 (3.65-5.03) 08/04/19 05:43 Hgb 13.9 gm/dl (11.8-15.2) 08/04/19 05:43 Hct 40.6 % (35.5-45.6) 08/04/19 05:43 MCV 101 fl (84-94) H 08/04/19 05:43 MCH 35 pg (28-32) H 08/04/19 05:43 MCHC 34 % (32-34) 08/04/19 05:43 RDW 13.3 % (13.2-15.2) 08/04/19 05:43 Plt Count 178 K/mm3 (140-440) 08/04/19 05:43 Lymph % (Auto) 36.5 % (13.4-35.0) H 08/04/19 05:43 [place] % (Auto) 9.0 % (0.0-7.3) H 08/04/19 05:43 Eos % (Auto) 2.0 % (0.0-4.3) 08/04/19 05:43 Baso % (Auto) 0.8 % (0.0-1.8) 08/04/19 05:43 Lymph # 3.8 K/mm3 (1.2-5.4) 08/04/19 05:43 [place] # 0.9 K/mm3 (0.0-0.8) H 08/04/19 05:43 Eos # 0.2 K/mm3 (0.0-0.4) 08/04/19 05:43 Baso # 0.1 K/mm3 (0.0-0.1) 08/04/19 05:43 Seg Neutrophils % 51.7 % (40.0-70.0) 08/04/19 05:43 Seg Neutrophils # 5.4 K/mm3 (1.8-7.7) 08/04/19 05:43 PT 13.9 Sec. (12.2-14.9) 08/03/19 10:34 INR 1.08 (0.87-1.13) 08/03/19 10:34 APTT 26.5 Sec. (24.2-36.6) 08/03/19 10:34 D-Dimer 136.51 ng/mlDDU (0-234) 08/03/19 10:34 Sodium 141 mmol/L (137-145) 08/04/19 05:43 Potassium 3.8 mmol/L (3.6-5.0) 08/04/19 05:43 Chloride 110.8 mmol/L (98-107) H 08/04/19 05:43 Carbon Dioxide 20 mmol/L (22-30) L 08/04/19 05:43 Anion Gap 14 mmol/L 08/04/19 05:43 BUN 11 mg/dL (9-20) 08/04/19 05:43 Creatinine 0.8 mg/dL (0.8-1.5) 08/04/19 05:43 Estimated GFR > 60 ml/min 08/04/19 05:43 BUN/Creatinine Ratio 14 % 08/04/19 05:43 Glucose 108 mg/dL (75-100) H 08/04/19 05:43 Calcium 8.7 mg/dL (8.4-10.2) 08/04/19 05:43 Total Bilirubin 0.40 mg/dL (0.1-1.2) 08/04/19 05:43 AST 39 units/L (5-40) 08/04/19 05:43 ALT 18 units/L (7-56) 08/04/19 05:43 Alkaline Phosphatase 117 units/L (35-129) 08/04/19 05:43 Total Creatine Kinase 286 units/L (55-170) H 08/04/19 05:43 CK-MB (CK-2) 29.5 ng/mL (0.0-4.0) H 08/04/19 05:43 CK-MB (CK-2) Rel Index 10.3 (0-4) H 08/04/19 05:43 Troponin T 0.478 ng/mL (0.00-0.029) H* D 08/04/19 05:43 Total Protein 6.0 g/dL (6.3-8.2) L 08/04/19 05:43 Albumin 3.6 g/dL (3.9-5) L 08/04/19 05:43 Albumin/Globulin Ratio 1.5 % 08/04/19 05:43 Triglycerides 89 mg/dL (2-149) 08/03/19 17:30 Cholesterol 136 mg/dL (50-199) 08/03/19 17:30 LDL Cholesterol Direct 88 mg/dL (50-130) 08/03/19 17:30 HDL Cholesterol 47 mg/dL (40-59) 08/03/19 17:30 Cholesterol/HDL Ratio 2.89 % 08/03/19 17:30 Active Medications - Current Medications Current Medications: Generic Name Dose Route Start Last Admin Trade Name Freq PRN Reason Stop Dose Admin Aspirin 81 mg 08/04/19 10:00 08/04/19 09:42 Baby Aspirin PO 81 mg QDAY [facility] Administration Atorvastatin Calcium 40 mg 08/04/19 22:00 Lipitor PO QHS [facility] Clopidogrel Bisulfate 75 mg 08/04/19 10:00 08/04/19 09:39 Plavix PO 75 mg QDAY [facility] Administration Enoxaparin Sodium 40 mg 08/04/19 22:00 Enoxaparin SUB-Q QDAY@2200 [facility] Isosorbide Mononitrate 30 mg 08/04/19 10:00 08/04/19 09:40 Imdur PO 30 mg QDAY [facility] Administration Losartan Potassium 50 mg 08/04/19 10:00 08/04/19 09:40 Cozaar PO 50 mg QDAY [facility] Administration Metoprolol Tartrate 25 mg 08/04/19 10:00 08/04/19 09:39 Metoprolol PO 25 mg BID [facility] Administration Ondansetron HCl 4 mg 08/03/19 13:12 Zofran IV Q8H PRN Nausea And Vomiting Sodium Chloride 10 ml 08/03/19 22:00 08/04/19 09:41 Sodium Chloride Flush Syringe 10 Ml IV 10 ml BID MIKE Administration Sodium Chloride 10 ml 08/03/19 12:44 Sodium Chloride Flush Syringe 10 Ml IV PRN PRN LINE FLUSH
[2019-08-04] MEDS ORDERED: LOSARTAN 25 MG TAB PO SCH (10:00)
[2019-08-04] MEDS: NICOTINE 14 MG/24 HR PATCH TD SCH (12:24)
--- NOTE | 2019-08-04 15:04 | Progress Note ---
Assessment and Plan CAD, ACS,s/p PCI and balloon angioplasty Tobacco use disorder HTN BPH Resume flomax Increase activity Outpatient pulmonary follow up to evaluate for sleep apnea -Continue with post cardiac cath care per cardiology -Smoking cessation counselling done for >7 minutes at the bedside -Nicotine withdrawal precautions -Supplemental oxygen to keep O2 sats>90% -Cardio-protective measures -Life style modifications -Blood pressure control Subjective Date of service: 08/04/19 Principal diagnosis: Acute Coronary Syndrome; NSTEMI; CAD; Tobacco use disorder; HTN Interval history: Follow up fro ACS s/p PCI and balloon angioplasty; Tobacco use disorder Patient seen and examined. Vitals, labs,medications, chart reviewed. No further episodes of chest pain, no acute overnight events, no fevers or chills, no cough. No vomiting, no diarrhea Complains of urinary retention, he was on flomax at home and wants to know if it can be restarted Transthoracic echo shows preserved EF and no evidence of pulmonary HTN Objective - Exam Narrative Exam: General.: Appears well, no distress, nontoxic, obese AAM HEENT: Atraumatic, normocephalic, Moist mucous membranes, extraocular muscles intact, no lymphadenopathy Neck: supple, no JVD Cardiac: RRR, S1-S2 heard, no murmurs Lungs: Good AE bilaterally, clear to auscultation bilaterally Abdomen: soft , nontender, nondistended, bowel sounds positive Extremities: no edema clubbing or cyanosis Skin: no rash or lesions Neurologic: no gross focal deficits Psych: calm, and cooperative Vital Signs - 12hr 08/04/19 08/04/19 08/04/19 03:30 03:46 04:00 Temperature 98.8 F Pulse Rate 67 66 65 Respiratory 16 9 L 17 Rate Blood Pressure 126/80 126/80 110/65 O2 Sat by Pulse 96 95 91 Oximetry 08/04/19 08/04/19 08/04/19 04:16 04:30 04:46 Temperature Pulse Rate 67 65 64 Respiratory 21 12 14 Rate Blood Pressure 110/65 110/65 110/65 O2 Sat by Pulse 98 97 96 Oximetry 08/04/19 08/04/19 08/04/19 05:00 05:16 05:30 Temperature Pulse Rate 59 L 57 L 61 Respiratory 11 L 19 16 Rate Blood Pressure 110/65 133/78 133/78 O2 Sat by Pulse 95 97 97 Oximetry 08/04/19 08/04/19 08/04/19 05:46 06:00 06:15 Temperature Pulse Rate 65 60 59 L Respiratory 19 17 12 Rate Blood Pressure 126/70 126/70 144/90 O2 Sat by Pulse 92 96 97 Oximetry 08/04/19 08/04/19 08/04/19 06:30 06:45 07:00 Temperature Pulse Rate 54 L 65 55 L Respiratory 18 9 L 14 Rate Blood Pressure 136/89 138/91 138/91 O2 Sat by Pulse 96 97 95 Oximetry 08/04/19 08/04/19 08/04/19 07:16 07:30 07:45 Temperature Pulse Rate 54 L 56 L 56 L Respiratory 25 H 16 25 H Rate Blood Pressure 112/77 112/77 126/67 O2 Sat by Pulse 98 96 97 Oximetry 08/04/19 08/04/19 08/04/19 08:00 08:16 08:30 Temperature 98 F Pulse Rate 58 L 56 L Respiratory 22 17 15 Rate Blood Pressure 134/72 123/74 123/74 O2 Sat by Pulse 94 100 97 Oximetry 08/04/19 08/04/19 08/04/19 08:46 09:00 09:15 Temperature Pulse Rate 60 65 70 Respiratory 9 L 15 13 Rate Blood Pressure 125/79 125/79 121/80 O2 Sat by Pulse 99 97 98 Oximetry 08/04/19 08/04/19 08/04/19 09:30 09:39 09:40 Temperature Pulse Rate 72 71 71 Respiratory 17 Rate Blood Pressure 121/80 132/72 132/72 O2 Sat by Pulse 95 Oximetry 08/04/19 08/04/19 09:45 10:00 Temperature Pulse Rate 77 59 L Respiratory 19 Rate Blood Pressure 134/75 O2 Sat by Pulse 93 Oximetry CBC and BMP: 08/05/19 06:53 08/05/19 06:53 ABG, PT/INR, D-dimer: PT/INR, D-dimer PT 13.9 Sec. (12.2-14.9) 08/03/19 10:34 INR 1.08 (0.87-1.13) 08/03/19 10:34 D-Dimer 136.51 ng/mlDDU (0-234) 08/03/19 10:34 Abnormal lab findings: Abnormal Labs 08/03/19 08/03/19 08/03/19 10:34 10:34 12:55 Hgb 15.8 H Hct 46.0 H MCV 101 H MCH 35 H Lymph % (Auto) 41.8 H [place] % (Auto) [place] # Activated Clotting Time 274 H Potassium 3.5 L Chloride 107.6 H Carbon Dioxide Glucose 158 H Total Creatine Kinase CK-MB (CK-2) CK-MB (CK-2) Rel Index Troponin T Total Protein Albumin 08/03/19 08/03/19 08/04/19 17:30 19:52 05:43 Hgb Hct MCV 101 H MCH 35 H Lymph % (Auto) 36.5 H [place] % (Auto) 9.0 H [place] # 0.9 H Activated Clotting Time Potassium Chloride Carbon Dioxide Glucose Total Creatine Kinase 377 H 398 H CK-MB (CK-2) 53.7 H 55.6 H CK-MB (CK-2) Rel Index 14.2 H 13.9 H Troponin T 0.608 H* D 0.751 H* D Total Protein Albumin 08/04/19 05:43 Hgb Hct MCV MCH Lymph % (Auto) [place] % (Auto) [place] # Activated Clotting Time Potassium Chloride 110.8 H Carbon Dioxide 20 L Glucose 108 H Total Creatine Kinase 286 H CK-MB (CK-2) 29.5 H CK-MB (CK-2) Rel Index 10.3 H Troponin T 0.478 H* D Total Protein 6.0 L Albumin 3.6 L
[2019-08-04] MEDS: TAMSULOSIN 0.4 MG CAP PO SCH (18:01)
[2019-08-04] MEDS ORDERED: ENOXAPARIN 40 MG/0.4 ML INJ SUB-Q SCH (22:00)
[2019-08-05 07:29] LABS: Hematocrit 40.8 % (35.5-45.6); Hemoglobin 14.1 gm/dl (11.8-15.2)
[2019-08-05 07:53] LABS: BUN/Creatinine Ratio 11; Blood Urea Nitrogen 10 mg/dL (9-20); Calcium 9.2 mg/dL (8.4-10.2); Hemolysis Index 5
[2019-08-05] MEDS: NICOTINE 14 MG/24 HR PATCH TD SCH (09:18)
[2019-08-05] MEDS: TAMSULOSIN 0.4 MG CAP PO SCH (09:18)
[2019-08-05] MEDS: ASPIRIN 81 MG TAB CHEW PO SCH (09:18)
[2019-08-05] MEDS: CLOPIDOGREL 75 MG TAB PO SCH (09:19)
[2019-08-05] MEDS: METOPROLOL TARTRATE 50 MG TAB PO SCH (09:21)
[2019-08-05] MEDS: LOSARTAN 25 MG TAB PO SCH (09:22)
--- NOTE | 2019-08-05 10:48 | Progress Note ---
Assessment and Plan Currently stable cardiac status. Pt may discharge home from cardiology standpoint on current cardiac regimen, including ASA 81, plavix, lipitor, lopressor, losartan, imdur. Follow up in our [place] office with Dr. Mitchell on 08/08/2019 @ 11:30AM. The patient has been seen in conjunction with Dr. Brian who agrees with the assessment and plan of care. - Patient Problems (1) NSTEMI (non-ST elevated myocardial infarction) Current Visit: Yes Status: Acute (2) CAD (coronary artery disease) Current Visit: Yes Status: Chronic Qualifiers: Coronary Disease-Associated Artery/Lesion type: [place] artery [place] vs. transplanted heart: [place] heart Associated angina: with unstable angina Qualified Code(s): I25.110 - Atherosclerotic heart disease of [place] coronary artery with unstable angina pectoris (3) Hypertension Current Visit: Yes Status: Chronic Qualifiers: Hypertension type: essential hypertension Qualified Code(s): I10 - Essential (primary) hypertension (4) Hyperlipemia, mixed Current Visit: Yes Status: Chronic (5) Smoker Current Visit: Yes Status: Chronic Subjective Date of service: 08/05/19 Principal diagnosis: Acute Coronary Syndrome; NSTEMI; CAD; Tobacco use disorder; HTN Interval history: pt resting in bed, no current complaints. states he feels ready to discharge home. girlfriend at bedside. Objective Last Vital Signs Temp 98.6 F 08/05/19 08:28 Pulse 80 08/05/19 10:00 Resp 21 08/05/19 10:00 BP 141/93 08/05/19 09:22 Pulse Ox 96 08/05/19 10:00 - Physical Examination General: No Apparent Distress HEENT: Positive: PERRL, Mucus Membranes Moist Neck: Positive: neck supple, trachea midline Cardiac: Positive: Reg Rate and Rhythm, S1/S2 Lungs: Positive: Decreased Breath Sounds Neuro: Positive: Grossly Intact Abdomen: Positive: Soft, Active Bowel Sounds. Negative: Tender, Distended Skin: Positive: Clear Incision: Cardiac Cath Site Musculoskeletal: No Pain, Normal Range of Motion Extremities: Present: normal. Absent: edema - Labs and Meds CBC 08/05/19 Range/Units 06:53 Hgb 14.1 (11.8-15.2) gm/dl Hct 40.8 (35.5-45.6) % Plt Count 177 (140-440) K/mm3 Comprehensive Metabolic Panel 08/05/19 Range/Units 06:53 Sodium 139 (137-145) mmol/L Potassium 3.5 L (3.6-5.0) mmol/L Chloride 107.4 H (98-107) mmol/L Carbon Dioxide 19 L (22-30) mmol/L BUN 10 (9-20) mg/dL Creatinine 0.9 (0.8-1.5) mg/dL Glucose 159 H (75-100) mg/dL Calcium 9.2 (8.4-10.2) mg/dL - Imaging and Cardiology Echo: report reviewed (normal lv function and no signficant regurtiations) Cardiac cath: report reviewed (left main long patent LAD patent ramus patent obtuse marginal 1 patent circumflex patent OM patent RCA patent PLV patent but PDA second branch midportion was 100% with borderline normal LV function.)
[2019-08-05 11:38] VITALS: BP 136/87
--- NOTE | 2019-08-05 13:12 | Discharge Summary ---
Providers - Providers Date of Admission: 08/03/19 11:42 Date of discharge: 08/05/19 Attending physician: KHOA GOOD 08/03/19 Consult to Cardiac Rehabilitation [CONS] Routine Reason For Exam: post pci 08/03/19 10:35 Consult to Cardiology [CONS] Routine Consulting Provider: ANDIE HUGHES Reason For Exam: ACS 08/03/19 14:19 Consult to Physician [CONS] Routine Comment: Consulting Provider: TAMI PERSON Physician Instructions: Reason For Exam: acute MS Hospitalization Condition: Stable Hospital course: Patient is a 64-year-old AA man with a history of tobacco dependency, hypertension and BPH who presented to [facility] ED with chest pains. It was midsternal chest pain that woke him up from sleep. He suffered a non-STEMI. He failed medical treatments and therefore was taken to the [facility]. Where he received successful percutaneous balloon angioplasty. Discharge Diagnoses Non-STEMI Acute diastolic heart failure Tobacco abuse Hypertension Hyperlipidemia BPH Currently stable cardiac status. Pt may discharge home from cardiology standpoint on current cardiac regimen, including ASA 81, plavix, lipitor, lopres sor, losartan, imdur. Follow up in our [place] office with Dr. Galindo on 08/08/2019 @ 11:30AM. Disposition: DC-01 TO HOME OR SELFCARE Time spent for discharge: 34 minutes Core Measure Documentation - Palliative Care Palliative Care/ Comfort Measures: Not Applicable - Core Measures Any of the following diagnoses?: acute MS, heart failure - VTE Discharge Requirements Deep Vein Thrombosis/Pulmonary Embolism Present on Admission: No Has pt received <5 days of overlap therapy or INR<2.0: No Anticoagulant overlap therapy prescribed at discharge: No Contraindication No Overlap Therapy order at DC: Not Indicated - Acute MS Discharge Requirements Aspirin at discharge: Yes DELVIN/ARB for LVSD if EF <40%: Yes Beta debbie at discharge: Yes Statin for LDL = or >100 mg/dl on DC: Yes - Heart Failure Discharge Requirements DELVIN/ARB for LVSD if EF <40%: Yes Beta debbie at discharge: Yes Exam - Physical Exam Narrative exam: Gen: WDWN, NAD, Awake, Alert, Orientated x 3 HEENT: NCAT, EOMI, PERRL, OP Clear Neck: supple, no adenopathy, no thyromegaly, no JVD CVS/Heart: RRR, normal S1S2, pulses present bilaterally Chest/Lungs: CTA B, Symmetrical chest expansion, good air entry bilaterally GI/Abdomen: soft, NTND, good bowel sounds, no guarding or rebound /Bladder: no suprapubic tenderness, no CVA or paraspinal tenderness Extermity/Skin: no c/c/e, no obvious rash MSK: FROM x 4 Neuro: CN 2-12 grossly intact, no new focal deficits Psych: calm - Constitutional Vitals: Temp Pulse Resp BP Pulse Ox 98.2 F 60 18 136/87 99 08/05/19 11:37 08/05/19 11:37 08/05/19 11:37 08/05/19 11:37 08/05/19 11:37 Plan Activity: other (no strenous activity unless cleared by [facility]) Diet: low salt Special Instructions: record daily BP diary Follow up with: MARLENE ROOT [Other] - 7 Days ADELE GALINDO MD [Staff Physician] - 7 Days (Follow up in our [place] office with Dr. Galindo on 08/08/2019 @ 11:30AM. ) Prescriptions: Tamsulosin [Flomax] 2 tab PO QHS #60 capsule AtorvaSTATin [Lipitor] 40 mg PO QHS #30 tablet Aspirin [Aspirin BABY CHEW TAB] 81 mg PO QDAY #30 tab.chew Losartan [Cozaar] 50 mg PO QDAY #30 tablet Nicotine [Habitrol] 14 mg TD QDAY #15 patch ISOSORBIDE MONOnitrate [Imdur ER] 30 mg PO QDAY #30 tablet Metoprolol [Lopressor] 25 mg PO BID #60 tablet Clopidogrel [Plavix] 75 mg PO QDAY #30 tablet
== END 2019-08-05 14:16 | disposition home or self-care (01) | DRG 250 ==
LOC: ED 10:13 → CC1 11:42 → 4A 08-04 10:07
PROVIDERS: ADMIT Internal Medicine; ATTEND Internal Medicine
PROC: 02703ZZ Dilation of Coronary Artery, One Artery, Percutaneous Approach (ICD-10-PCS; principal; 2019-08-03)
PROC: 4A023N7 Measurement of Cardiac Sampling and Pressure, Left Heart, Percutaneous Approach (ICD-10-PCS; 2019-08-03)
PROC: B2151ZZ Fluoroscopy of Left Heart using Low Osmolar Contrast (ICD-10-PCS; 2019-08-03)
PROC: B2111ZZ Fluoroscopy of Multiple Coronary Arteries using Low Osmolar Contrast (ICD-10-PCS; 2019-08-03)
DX: I21.4 Non-ST elevation (NSTEMI) myocardial infarction (principal); I50.31 Acute diastolic (congestive) heart failure; F17.203 Nicotine dependence unspecified, with withdrawal; I25.110 Atherosclerotic heart disease of native coronary artery with unstable angina pectoris; I11.0 Hypertensive heart disease with heart failure; E78.2 Mixed hyperlipidemia; N40.0 Benign prostatic hyperplasia without lower urinary tract symptoms; Z71.6 Tobacco abuse counseling
CPT/HCPCS: 36415; 71045; 80048; 80053; 80061; 82550; 82553; 84484; 85014; 85018; 85025; 85049; 85347; 85379; 85610; 85730; 92920; 93005; 93010; 93306; 93458; G0378; A9270-GY; C1725; C1769; C1887; C1894; J1644; J1650; J2250; J2270; J3010; J3246; J7030; J7040; Q9967